=== PATIENT | female | born 1960 | race Caucasian/White ===

== ENCOUNTER → 2022-03-03 | Day surgery (SDC) | payer BC ==
[~2022-03-03] MED LIST: DICYCLOMINE HCL20 MG PO; DONPERIDONE PO; FENTANYL CITRATE/PF 100MCG/2 ML INJ ONE; GABAPENTIN300 MG PO; HYDROXYZINE HCL25 MG PO; LIDOCAINE HCL 2% LOCAL INJ 5 ML SDV VIAL INJ ONE; LYRICA25 MG PO; METOCLOPRAMIDE HCL 10 MG/2ML VIAL ONE; MIDAZOLAM HCL 2 MG/2 ML VIAL ONE; OMEPRAZOLE40 MG PO; ONDANSETRON ODT8 MG PO; PHENTERMINE H37.5 MG PO; PLAQUENIL200 MG PO; POVIDONE IODINE 0.05% 0.05 % ML PO ONE; PROPOFOL IV EMULSION 10 MG/ML 20 ML VIAL ONE; PROVENTIL HFA6.7 GM INH; RALOXIFENE HCL60 MG PO; REXULTI1 MG PO; ROPINIROLE HCL1 MG PO; TRAZODONE HCL300 MG PO; VENLAFAXINE HCL75 MG PO; VITAMIN D310 MCG PO
[2022-03-03 15:50] VITALS: BP 118/67
== END | disposition home or self-care (01) ==
LOC: OR 10:46
PROVIDERS: ATTEND Internal Medicine Gastroenterology
DX: K29.60 Other gastritis without bleeding (principal); K31.7 Polyp of stomach and duodenum; K22.10 Ulcer of esophagus without bleeding; K21.9 Gastro-esophageal reflux disease without esophagitis; K44.9 Diaphragmatic hernia without obstruction or gangrene; K59.09 Other constipation; Z71.3 Dietary counseling and surveillance; M06.9 Rheumatoid arthritis, unspecified; M79.2 Neuralgia and neuritis, unspecified; M79.7 Fibromyalgia; F41.9 Anxiety disorder, unspecified; Z88.2 Allergy status to sulfonamides; Z01.810 Encounter for preprocedural cardiovascular examination; Z01.812 Encounter for preprocedural laboratory examination; Z20.822 Contact with and (suspected) exposure to COVID-19; Z79.899 Other long term (current) drug therapy; Z68.31 Body mass index [BMI] 31.0-31.9, adult
CPT/HCPCS: 43239; 93005; C9113; J2001; J2250; J2704; J2765; J3010; U0002